=== PATIENT | male | born 1995 | race Hispanic/Latino ===

== ENCOUNTER 2024-06-12 20:09 | Emergency (ER) | payer SELFPAY ==
[2024-06-12] MEDS ORDERED: Ketorolac Tromethamine 30 MG (1 mL) VIAL ONE (22:09)
== END 2024-06-12 22:33 | disposition home or self-care (01) ==
LOC: ERS 20:09
DX: M54.16 Radiculopathy, lumbar region (principal)
CPT/HCPCS: 96372; 99283; J1885